=== PATIENT | male | born 1950 | race Caucasian/White ===

== ENCOUNTER 2018-01-02 14:58 | Emergency (ER) | payer OTHER ==
[2018-01-02] MEDS ORDERED: NS 1,000 ML IV ONE (15:37)
--- NOTE | 2018-01-02 15:42 | EDPHY ---
H & P Time Seen by Provider: 01/02/18 15:21 HPI/ROS: HPI Frequent urination, left flank pain. 67-year-old male by private vehicle. This patient has a history of kidney stones. He reports onset of left flank pain with radiation to the left lower quadrant of his abdomen, identical to his previous pain associated with kidney stones, onset Saturday. He reports that has been intermittent in nature. He reports that he had more pain in his left lower quadrant today and this is what made him come to the emergency department. He also reports increased frequency with urination. He reports however that now his pain seems better. No fever. No nausea or vomiting. No gross hematuria. ROS: Constitutional: No fever, no chills. No weakness. Eyes: No discharge. No changes in vision. ENT: No sore throat. No nasal congestion or rhinorrhea. Respiratory: No cough. No shortness of breath. Cardiac: No chest pain, no palpitations. Gastrointestinal: As above, no vomiting, no diarrhea. Genitourinary: No hematuria. No dysuria or increased frequency with urination. Musculoskeletal: As above. No neck pain. No myalgias or arthralgias. Skin: No rashes. Neurological: No headache. No focal weakness or altered sensation. Past medical history: Hyperlipidemia, type 2 diabetes, kidney stones. Social history: Nonsmoker. No alcohol. Here by himself. Physical Exam: General Appearance: Alert, no distress. Moderately obese habitus. This patient is responding to questions appropriately and in full sentences. This patient appears well-hydrated and well-nourished. Eyes: Pupils equal and round no pallor or injection. No lid edema, erythema or injection. Respiratory: There are no retractions, lungs are clear to auscultation with good air movement bilaterally. Cardiovascular: Regular rate and rhythm. No murmur. Gastrointestinal: Abdomen is soft and nontender, no masses, bowel sounds normal. No focal tenderness at McBurney's point. No Wang sign. Neurological: Motor sensory function is grossly intact. Cranial nerves are normal. Gait is normal. Skin: Warm and dry, no rashes. Musculoskeletal: No CVA tenderness bilaterally. Extremities are symmetrical. All joints range without pain or impingement. Psychiatric: No agitation. No depression. Database: EKG: Imaging: CT abdomen and pelvis without contrast: Significant for a 5.6 mm distal left- sided ureteral stone just proximal to the ureteral vesicular junction. There is no significant hydronephrosis. The patient also has a left-sided 2.5 cm renal cyst. Results were discussed with staff radiologist. Procedures: Emergency department course: Triage vital signs reviewed. He is moderately hypertensive. Vital signs are otherwise normal. He was started on IV normal saline with 500 cc to 1 L to be given over the next hour. He consents to CT imaging to evaluate for kidney stones. At this time he declines pain medication. Urinalysis obtained and shows hematuria. 5:00 p.m., the patient was re-evaluated, resting comfortably at this time. Pain is not an issue. Results of his CT scan and diagnosis discussed with him. He was offered admission but he does not want to do this. He tells me that his last kidney stone was 11 mm any past this on his own. He was given 0.4 mg of oral Flomax. He feels comfortable going home. I discussed his high blood sugar and the need for him to take his metformin as prescribed. He reports that he ate a hamburger and had some beer shortly prior to arrival. I discussed urology follow-up with him. Return to emergency department precautions were thoroughly reviewed. He will be prescribed ibuprofen and Vicodin as well for pain control. All of his questions were answered. The patient was discharged home in good condition. Differential Diagnosis: The differential diagnosis on this patient includes but is not limited to kidney stone. Urinary tract infection, pyelonephritis unlikely. This represents a partial list of diagnoses considered. These considerations are based on history, physical exam, past history, reassessment and diagnostic testing. Smoking Status: Never smoked Constitutional: Initial Vital Signs Temperature (C) 36.6 C 01/02/18 15:04 Heart Rate 87 01/02/18 15:04 Respiratory Rate 16 01/02/18 15:04 Blood Pressure 149/82 H 01/02/18 15:04 O2 Sat (%) 98 01/02/18 15:04 O2 Delivery Mode Room Air Allergies/Adverse Reactions: Penicillins Allergy (Verified 01/02/18 15:04) Home Medications: Medication Instructions Recorded Hyperlipidemia Medication Unk 03/29/13 Metformin Unk 03/29/13 Ondansetron Odt [Zofran Odt 4 mg 4 mg PO Q4 PRN #10 tab 03/29/13 (RX)] Oxycodone Ir [Oxy Ir 5 mg (RX)] 1 - 2 tab PO Q4-6PRN PRN #20 tab 03/29/13 Tamsulosin HCl [Flomax 0.4 MG (RX)] 0.4 mg PO DAILY #7 cap 03/29/13 Docusate Sodium [Colace 100 MG (*)] 100 mg PO TID #20 cap 01/02/18 Hydrocodone/APAP 5/325 [Bonita 1 - 2 tab PO Q4-6PRN PRN #14 tab 01/02/18 5/325 (*)] Ondansetron Odt [Zofran Odt 4 mg 4 mg PO Q4PRN PRN #10 tab 01/02/18 (*)] Tamsulosin HCl [Flomax 0.4 MG (*)] 0.4 mg PO DAILY #4 cap 01/02/18 Medical Decision Making - Diagnostics Imaging Results: Imaging Impressions Abdomen/Pelvis CT 01/02/18 15:37 Impression: 1. There is a 5.6 mm stone in the distal left ureter which is not causing hydronephrosis. 2. Interval enlargement of a 7.2 cm cyst arising from the upper pole left kidney. 3. Mild fatty liver. Findings and recommendations discussed with Robin Silverman MD at 1703 hour, 01/02/2018. - Data Points Laboratory Results: Laboratory Results 01/02/18 15:55 01/02/18 01/02/18 01/02/18 16:54 15:55 15:55 WBC 7.26 10^3/uL 10^3/uL (3.80-9.50) RBC 4.94 10^6/uL 10^6/uL (4.40-6.38) Hgb 15.6 g/dL g/dL (13.7-17.5) Hct 43.2 % % (40.0-51.0) MCV 87.4 fL fL (81.5-99.8) MCH 31.6 pg pg (27.9-34.1) MCHC 36.1 g/dL g/dL (32.4-36.7) RDW 12.9 % % (11.5-15.2) Plt Count 167 10^3/uL 10^3/uL (150-400) MPV 10.5 fL fL (8.7-11.7) Neut % (Auto) 60.1 % % (39.3-74.2) Lymph % (Auto) 28.7 % % (15.0-45.0) [place] % (Auto) 8.1 % % (4.5-13.0) Eos % (Auto) 1.8 % % (0.6-7.6) Baso % (Auto) 1.0 % % (0.3-1.7) Nucleat RBC Rel Count 0.0 % % (0.0-0.2) Absolute Neuts (auto) 4.37 10^3/uL 10^3/uL (1.70-6.50) Absolute Lymphs (auto) 2.08 10^3/uL 10^3/uL (1.00-3.00) Absolute Monos (auto) 0.59 10^3/uL 10^3/uL (0.30-0.80) Absolute Eos (auto) 0.13 10^3/uL 10^3/uL (0.03-0.40) Absolute Basos (auto) 0.07 10^3/uL 10^3/uL (0.02-0.10) Absolute Nucleated RBC 0.00 10^3/uL 10^3/uL (0-0.01) Immature Gran % 0.3 % % (0.0-1.1) Immature Gran # 0.02 10^3/uL 10^3/uL (0.00-0.10) Sodium Pending 136 mEq/L mEq/L (135-145) Potassium Pending 5.1 mEq/L H mEq/L (3.3-5.0) Chloride Pending 104 mEq/L mEq/L (97-110) Carbon Dioxide Pending 19 mEq/l L mEq/l (22-31) Anion Gap Pending 13 mEq/L mEq/L (6-14) BUN Pending 30 mg/dL H mg/dL (7-23) Creatinine Pending 1.1 mg/dL mg/dL (0.7-1.3) Estimated GFR Pending > 60 Glucose Pending 246 mg/dL H mg/dL (70-100) Calcium Pending 9.3 mg/dL mg/dL (8.5-10.4) Urine Color Urine Appearance Urine pH Ur Specific [place] Urine Protein Urine Ketones Urine Blood Urine Nitrate Urine Bilirubin Urine Urobilinogen Ur Leukocyte Esterase Urine RBC Urine WBC Ur Epithelial Cells Urine Mucus Urine Glucose 01/02/18 15:10 WBC RBC Hgb Hct MCV MCH MCHC RDW Plt Count MPV Neut % (Auto) Lymph % (Auto) [place] % (Auto) Eos % (Auto) Baso % (Auto) Nucleat RBC Rel Count Absolute Neuts (auto) Absolute Lymphs (auto) Absolute Monos (auto) Absolute Eos (auto) Absolute Basos (auto) Absolute Nucleated RBC Immature Gran % Immature Gran # Sodium Potassium Chloride Carbon Dioxide Anion Gap BUN Creatinine Estimated GFR Glucose Calcium Urine Color YELLOW Urine Appearance CLEAR Urine pH 5.0 (5.0-7.5) Ur Specific [place] 1.022 (1.002-1.030) Urine Protein NEGATIVE (NEGATIVE) Urine Ketones TRACE H (NEGATIVE) Urine Blood 3+ H (NEGATIVE) Urine Nitrate NEGATIVE (NEGATIVE) Urine Bilirubin NEGATIVE (NEGATIVE) Urine Urobilinogen NEGATIVE EU EU (0.2-1.0) Ur Leukocyte Esterase NEGATIVE (NEGATIVE) Urine RBC 5-10 /hpf H /hpf (0-3) Urine WBC 3-5 /hpf H /hpf (0-3) Ur Epithelial Cells NONE SEEN /lpf /lpf (NONE-1+) Urine Mucus TRACE /lpf /lpf (NONE-1+) Urine Glucose 3+ H (NEGATIVE) Medications Given: Discontinued Medications Sodium Chloride (Ns) 1,000 mls @ 0 mls/hr IV EDNOW ONE; Wide Open PRN Reason: Protocol Stop: 01/02/18 15:38 Last Admin: 01/02/18 15:53 Dose: 1,000 mls Departure - Departure Disposition: Home, Routine, Self-Care Clinical Impression: Calculus of left kidney Condition: Good Instructions: Kidney Stones (ED) Additional Instructions: Read and follow provided instructions. Follow-up with Urology, Dr. Deutsch or 1 of his partners in the next 1-2 days for re-evaluation as discussed. They will have access to your CT scan results as well as blood in urine work here. Your blood sugar was high in the emergency department. Continue taking your metformin as prescribed. Take medication as prescribed. Ibuprofen dosin mg every 6 hours with meals for the next 3 days only. Take only as needed for pain. Narcotic pain medication: 1-2 every 4-6 hours as needed for pain. Return to the emergency department for worsening pain, vomiting, fever or other serious concerns. Referrals: Chepe Minor MD [Primary Care Provider] - As per Instructions Rob Deutsch MD [Medical Doctor] - As per Instructions Prescriptions: Docusate Sodium [Colace 100 MG (*)] 100 mg PO TID #20 cap Hydrocodone/APAP 5/325 [Bonita 5/325 (*)] 1 - 2 tab PO Q4-6PRN PRN #14 tab PRN Reason: Pain, Moderate Ondansetron Odt [Zofran Odt 4 mg (*)] 4 mg PO Q4PRN PRN #10 tab PRN Reason: For Nausea & Vomiting Tamsulosin HCl [Flomax 0.4 MG (*)] 0.4 mg PO DAILY #4 cap
[2018-01-02 16:12] LABS: PLATELET COUNT 167 10^3/uL (150-400)
[2018-01-02] MEDS ORDERED: TAMSULOSIN HCL 0.4 MG CAP PO ONE (17:06)
[2018-01-02 17:42] VITALS: BP 140/78
== END 2018-01-02 17:42 | disposition home or self-care (01) ==
DX: N20.1 Calculus of ureter (principal); N28.1 Cyst of kidney, acquired; E86.9 Volume depletion, unspecified; E78.5 Hyperlipidemia, unspecified; E11.9 Type 2 diabetes mellitus without complications; Z87.442 Personal history of urinary calculi; Z79.4 Long term (current) use of insulin

== ENCOUNTER → 2018-01-09 | Outpatient (CLI) | payer OTHER | LOC: FIMAGING 14:10 | PROVIDERS: ATTEND Specialist | DX: N20.0 Calculus of kidney (principal) ==